=== PATIENT | female | born 1955 | race Caucasian/White ===

== ENCOUNTER 2022-09-15 10:10 | Inpatient (IN) | payer OTHER ==
[2022-09-15 10:33] VITALS: BMI 23.8
[2022-09-15 12:20] LABS: BASO % 0.4 % (0-2.0); EOS % 0.2 % (0-4.5); HEMATOCRIT 39.3 % (32.4-45.2); HEMOGLOBIN 12.5 GM/dL (10.7-15.3); LYMPH % 19.4 % (8-40); MCH 28.7 pg (25.7-33.7); MCHC 31.9 g/dl (32.0-36.0); MEAN CELL VOLUME 89.8 fl (80-96); MEAN PLT VOLUME 8.7 fl (7.5-11.1); MONO % 7.4 % (3.8-10.2); NEUT % 72.6 % (42.8-82.8); PLATELET COUNT 228 10^3/uL (134-434); RBC 4.37 M/mm3 (3.60-5.2); RDW 14.3 % (11.6-15.6); WHITE BLOOD COUNT 5.2 K/mm3 (4.0-10.0)
[2022-09-15 12:39] LABS: CHLORIDE 108 mmol/L (98-107); SODIUM 143 mmol/L (136-145)
[2022-09-15 12:41] LABS: ANION GAP 3 MMOL/L (8-16); BLOOD UREA NITROGEN 19.7 mg/dL (7-18); CALCIUM 9.2 mg/dL (8.5-10.1); CO2 31 mmol/L (21-32)
[2022-09-15 12:42] LABS: ALBUMIN 3.4 g/dl (3.4-5.0); GLUCOSE,RANDOM 119 mg/dL (74-106)
[2022-09-15 12:45] LABS: CREATININE 0.8 mg/dL (0.55-1.3); SGOT/AST 38 U/L (15-37); SGPT/ALT 35 U/L (13-61)
[2022-09-15 12:46] LABS: BILIRUBIN,TOTAL 0.5 mg/dL (0.2-1); TOT PROT 6.8 g/dl (6.4-8.2)
[2022-09-15 12:47] LABS: ALK PHOS 81 U/L (45-117)
[2022-09-15] MEDS ORDERED: ASPIRIN 81 MG CHEWABLE TABLETS PO ONE (13:05)
[2022-09-15] MEDS ORDERED: ASPIRIN 81 MG CHEWABLE TABLETS ONE (13:43)
[2022-09-15] MEDS ORDERED: CLOPIDOGREL BISULFATE 300 MG TABLET PO ONE (13:44)
[2022-09-15] MEDS ORDERED: ENOXAPARIN NA (PORCINE) 60 MG/0.6 ML DISP.SYRIN SQ SCH (13:45)
[2022-09-15 14:01] LABS: INR 1.07 (0.83-1.09); PROTHROMBIN TIME (PATIENT) 12.3 SEC (9.7-13.0)
[2022-09-15] MEDS ORDERED: ENOXAPARIN NA (PORCINE) 60 MG/0.6 ML DISP.SYRIN SQ ONE ×2 (14:30→15:24)
[2022-09-15] MEDS ORDERED: CLOPIDOGREL BISULFATE 300 MG TABLET ONE (15:24)
[2022-09-15] MEDS ORDERED: SODIUM CHLORIDE 1,000 ML IV SCH (17:15)
[2022-09-15 18:08] LABS: CHOLESTEROL 150 mg/dL (50-200); TRIGLYCERIDES 65 mg/dL (0-150)
[2022-09-15 18:09] LABS: LDL CHOLESTEROL (ONLY SJRH) 78 mg/dL (5-100)
[2022-09-15 18:10] LABS: HDL CHOLESTEROL 61 mg/dL (40-60)
[2022-09-16] MEDS: ATORVASTATIN CA 20 MG TABLET (FP) PO SCH ×2 (07:04→22:28)
[2022-09-16] MEDS: propRANOLol HCL 10 MG TABLET PO SCH ×3 (07:04→22:30)
[2022-09-16] MEDS: ENOXAPARIN NA (PORCINE) 60 MG/0.6 ML DISP.SYRIN SQ SCH ×3 (07:04→22:28)
[2022-09-16 07:05] LABS: BASO % 0.9 % (0-2.0); EOS % 0.2 % (0-4.5); HEMATOCRIT 31.9 % (32.4-45.2); HEMOGLOBIN 10.5 GM/dL (10.7-15.3); LYMPH % 45.4 % (8-40); MCH 29.7 pg (25.7-33.7); MEAN CELL VOLUME 89.8 fl (80-96); MEAN PLT VOLUME 8.6 fl (7.5-11.1); MONO % 11.8 % (3.8-10.2); NEUT % 41.7 % (42.8-82.8); PLATELET COUNT 180 10^3/uL (134-434); RBC 3.55 M/mm3 (3.60-5.2); RDW 14.2 % (11.6-15.6); WHITE BLOOD COUNT 4.5 K/mm3 (4.0-10.0)
[2022-09-16 07:25] LABS: CALCIUM 8.8 mg/dL (8.5-10.1)
[2022-09-16 07:26] LABS: MAGNESIUM 1.9 mg/dL (1.8-2.4)
[2022-09-16 07:29] LABS: BILIRUBIN,TOTAL 0.5 mg/dL (0.2-1); CREATININE 0.6 mg/dL (0.55-1.3); PHOSPHOROUS 3.8 mg/dL (2.5-4.9); TOT PROT 5.8 g/dl (6.4-8.2)
[2022-09-16] MEDS: CLOPIDOGREL BISULFATE 75 MG TABLET (FP) PO SCH (09:45)
[2022-09-16] MEDS: ASPIRIN COATED 81 MG TABLET.EC PO SCH (09:45)
[2022-09-16] MEDS ORDERED: ENOXAPARIN NA (PORCINE) 60 MG/0.6 ML DISP.SYRIN SQ ONE ×2 (09:47→22:09)
[2022-09-16] MEDS ORDERED: CLOPIDOGREL BISULFATE 75 MG TABLET (FP) ONE (09:47)
[2022-09-16] MEDS ORDERED: ASPIRIN COATED 81 MG TABLET.EC ONE (09:47)
[2022-09-16] MEDS ORDERED: propRANOLol HCL 10 MG TABLET ONE (22:09)
[2022-09-16] MEDS ORDERED: ATORVASTATIN CA 20 MG TABLET (FP) ONE (22:09)
[2022-09-17 07:56] LABS: BLOOD UREA NITROGEN 10.9 mg/dL (7-18); CALCIUM 9.3 mg/dL (8.5-10.1)
[2022-09-17 07:59] LABS: CREATININE 0.6 mg/dL (0.55-1.3)
[2022-09-17] MEDS ORDERED: ADENOSINE 6 MG/2 ML VIAL IVPUSH ONE ×3 (08:00→13:06)
[2022-09-17 08:01] LABS: BILIRUBIN,TOTAL 0.7 mg/dL (0.2-1); TOT PROT 7.3 g/dl (6.4-8.2)
[2022-09-17 08:04] LABS: ALBUMIN 3.7 g/dl (3.4-5.0)
[2022-09-17] MEDS: propRANOLol HCL 10 MG TABLET PO SCH ×3 (08:58→21:35)
[2022-09-17] MEDS ORDERED: propRANOLol HCL 10 MG TABLET ONE (08:58)
[2022-09-17 09:11] LABS: BASO % 0.3 % (0-2.0); EOS % 0.6 % (0-4.5); HEMATOCRIT 36.9 % (32.4-45.2); HEMOGLOBIN 12.2 GM/dL (10.7-15.3); MCH 29.2 pg (25.7-33.7); MCHC 33.1 g/dl (32.0-36.0); MEAN CELL VOLUME 88.4 fl (80-96); MEAN PLT VOLUME 8.5 fl (7.5-11.1); MONO % 9.4 % (3.8-10.2); NEUT % 58.7 % (42.8-82.8); PLATELET COUNT 213 10^3/uL (134-434); RBC 4.17 M/mm3 (3.60-5.2); RDW 13.9 % (11.6-15.6); WHITE BLOOD COUNT 4.1 K/mm3 (4.0-10.0)
[2022-09-17] MEDS ORDERED: CLOPIDOGREL BISULFATE 75 MG TABLET (FP) ONE (09:19)
[2022-09-17] MEDS ORDERED: ASPIRIN 81 MG CHEWABLE TABLETS ONE (09:19)
[2022-09-17] MEDS ORDERED: ENOXAPARIN NA (PORCINE) 60 MG/0.6 ML DISP.SYRIN SQ ONE (09:19)
[2022-09-17] MEDS: CLOPIDOGREL BISULFATE 75 MG TABLET (FP) PO SCH (09:20)
[2022-09-17] MEDS: ASPIRIN COATED 81 MG TABLET.EC PO SCH (09:20)
[2022-09-17] MEDS: ENOXAPARIN NA (PORCINE) 60 MG/0.6 ML DISP.SYRIN SQ SCH ×2 (09:20→21:33)
[2022-09-17] MEDS ORDERED: METOPROLOL TARTRATE 50 MG TABLET (FP) ONE (11:49)
[2022-09-17] MEDS: METOPROLOL TARTRATE 50 MG TABLET (FP) PO SCH ×2 (11:50→21:34)
[2022-09-17] MEDS ORDERED: LORazepam 2 MG/ML SDV VIAL IVPUSH ONE (13:22)
[2022-09-17] MEDS ORDERED: LORazepam 2 MG/ML SDV VIAL IVPUSH STA (13:37)
[2022-09-17] MEDS ORDERED: NITROGLYCERIN SUBLINGUAL 1/150 0.4 MG TAB SL ONE (19:49)
[2022-09-17] MEDS ORDERED: NITROGLYCERIN 25MG/D5W 250ML 25 MG/250 ML ML IVPB SCH (20:00)
[2022-09-17] MEDS: ATORVASTATIN CA 20 MG TABLET (FP) PO SCH (21:34)
[2022-09-18 09:54] LABS: BASO % 0.5 % (0-2.0); EOS % 1.1 % (0-4.5); HEMATOCRIT 32.4 % (32.4-45.2); HEMOGLOBIN 10.7 GM/dL (10.7-15.3); LYMPH % 55.2 % (8-40); MCH 29.3 pg (25.7-33.7); MCHC 33.2 g/dl (32.0-36.0); MEAN CELL VOLUME 88.4 fl (80-96); MEAN PLT VOLUME 8.7 fl (7.5-11.1); MONO % 12.3 % (3.8-10.2); NEUT % 30.9 % (42.8-82.8); PLATELET COUNT 208 10^3/uL (134-434); RBC 3.67 M/mm3 (3.60-5.2); RDW 14.1 % (11.6-15.6); WHITE BLOOD COUNT 3.3 K/mm3 (4.0-10.0)
[2022-09-18 10:16] LABS: BLOOD UREA NITROGEN 15.1 mg/dL (7-18); CALCIUM 8.3 mg/dL (8.5-10.1)
[2022-09-18 10:19] LABS: CREATININE 0.7 mg/dL (0.55-1.3)
[2022-09-18 10:21] LABS: BILIRUBIN,TOTAL 0.3 mg/dL (0.2-1); TOT PROT 5.5 g/dl (6.4-8.2)
[2022-09-18 10:38] LABS: ALBUMIN 2.7 g/dl (3.4-5.0)
[2022-09-18] MEDS: ENOXAPARIN NA (PORCINE) 60 MG/0.6 ML DISP.SYRIN SQ SCH ×2 (10:38→21:49)
[2022-09-18] MEDS: ASPIRIN COATED 81 MG TABLET.EC PO SCH (10:39)
[2022-09-18] MEDS: CLOPIDOGREL BISULFATE 75 MG TABLET (FP) PO SCH (10:39)
[2022-09-18] MEDS: METOPROLOL TARTRATE 50 MG TABLET (FP) PO SCH (10:39)
[2022-09-18] MEDS: AMINO ACIDS/PROTEIN HYDROLYS 30 ML LIQUID.PKT PO SCH (17:01)
[2022-09-18] MEDS: ATORVASTATIN CA 20 MG TABLET (FP) PO SCH (21:50)
[2022-09-19 09:13] LABS: HEMATOCRIT 31.5 % (32.4-45.2); HEMOGLOBIN 10.6 GM/dL (10.7-15.3); MCH 29.6 pg (25.7-33.7); MCHC 33.6 g/dl (32.0-36.0); MEAN CELL VOLUME 88.2 fl (80-96); MEAN PLT VOLUME 8.6 fl (7.5-11.1); PLATELET COUNT 194 10^3/uL (134-434); RBC 3.57 M/mm3 (3.60-5.2); RDW 14.1 % (11.6-15.6); WHITE BLOOD COUNT 3.2 K/mm3 (4.0-10.0)
[2022-09-19 09:41] LABS: CALCIUM 8.7 mg/dL (8.5-10.1)
[2022-09-19 09:42] LABS: ALBUMIN 2.7 g/dl (3.4-5.0); BLOOD UREA NITROGEN 12.4 mg/dL (7-18); MAGNESIUM 2.1 mg/dL (1.8-2.4)
[2022-09-19 09:45] LABS: CREATININE 0.6 mg/dL (0.55-1.3)
[2022-09-19 09:46] LABS: BILIRUBIN,TOTAL 0.4 mg/dL (0.2-1)
[2022-09-19 09:47] LABS: TOT PROT 5.4 g/dl (6.4-8.2)
[2022-09-19 09:57] LABS: ANISOCYTOSIS 1+; MACROCYTOSIS 0
[2022-09-19] MEDS ORDERED: REGADENOSON 0.4 MG/5 ML PRE-FILLED SYRINGE IVPUSH ONE ×2 (11:50→12:00)
[2022-09-19] MEDS: AMINO ACIDS/PROTEIN HYDROLYS 30 ML LIQUID.PKT PO SCH ×3 (14:36→16:53)
[2022-09-19] MEDS: ASPIRIN COATED 81 MG TABLET.EC PO SCH (14:37)
[2022-09-19] MEDS: ENOXAPARIN NA (PORCINE) 60 MG/0.6 ML DISP.SYRIN SQ SCH ×2 (14:37→22:05)
[2022-09-19] MEDS: CLOPIDOGREL BISULFATE 75 MG TABLET (FP) PO SCH (14:38)
[2022-09-19] MEDS: ATORVASTATIN CA 20 MG TABLET (FP) PO SCH (22:05)
[2022-09-20 06:41] VITALS: RESP 18
[2022-09-20] MEDS ORDERED: metoPROLOL SUCCINATE 25 MG TAB.SR.24H (FP) PO SCH (07:43)
[2022-09-20] MEDS: AMINO ACIDS/PROTEIN HYDROLYS 30 ML LIQUID.PKT PO SCH ×2 (08:57→11:08)
[2022-09-20] MEDS: CLOPIDOGREL BISULFATE 75 MG TABLET (FP) PO SCH (11:08)
[2022-09-20] MEDS: ASPIRIN COATED 81 MG TABLET.EC PO SCH (11:08)
[2022-09-20] MEDS: ENOXAPARIN NA (PORCINE) 60 MG/0.6 ML DISP.SYRIN SQ SCH (11:08)
[2022-09-20 15:28] VITALS: BP 133/52; PULSE 60; TEMP 98.7
== END 2022-09-20 17:46 | disposition home or self-care (01) | DRG 281 ==
LOC: JER 10:10 → JERBED 16:07 → J4S 09-17 20:08
PROVIDERS: ADMIT Internal Medicine; ATTEND Internal Medicine
DX: I21.4 Non-ST elevation (NSTEMI) myocardial infarction (principal); I47.1 Supraventricular tachycardia; E11.9 Type 2 diabetes mellitus without complications; I10 Essential (primary) hypertension; E78.5 Hyperlipidemia, unspecified; D64.9 Anemia, unspecified; E05.90 Thyrotoxicosis, unspecified without thyrotoxic crisis or storm; R63.4 Abnormal weight loss; R91.1 Solitary pulmonary nodule; D72.819 Decreased white blood cell count, unspecified; E87.6 Hypokalemia; Z68.23 Body mass index [BMI] 23.0-23.9, adult
CPT/HCPCS: 0241U-QW; 36415; 70450-TC; 70486-TC; 71046-TC-FY; 71275-TC; 78452-TC; 80053; 80061; 82962; 83036; 83735; 84100; 84436; 84439; 84443; 84445; 84480; 84481; 84484; 85025; 85379; 85610; 85730; 93005; 93010; 93017; 93306-TC; 97116-GP; 97161-GP; 99285-25; A9502; J2785; Q9967

== ENCOUNTER 2022-10-07 10:18 | Inpatient (IN) | payer OTHER ==
[2022-10-07] MEDS ORDERED: DEXTROSE 50%-WATER - 25 GM/50 ML VIAL IVPUSH ONE (10:29)
[2022-10-07] MEDS ORDERED: DEXTROSE 50%-WATER 25 GM/50 ML DISP.SYRIN ONE (10:30)
[2022-10-07 12:10] LABS: BASO % 0.7 % (0-2.0); EOS % 0.3 % (0-4.5); HEMATOCRIT 36.3 % (32.4-45.2); LYMPH % 24.5 % (8-40); MCH 29.8 pg (25.7-33.7); MCHC 33.1 g/dl (32.0-36.0); MEAN CELL VOLUME 90.2 fl (80-96); MEAN PLT VOLUME 8.9 fl (7.5-11.1); MONO % 8.7 % (3.8-10.2); NEUT % 65.8 % (42.8-82.8); PLATELET COUNT 174 10^3/uL (134-434); RBC 4.02 M/mm3 (3.60-5.2); RDW 14.8 % (11.6-15.6); WHITE BLOOD COUNT 2.8 K/mm3 (4.0-10.0)
[2022-10-07 13:06] LABS: CALCIUM 8.9 mg/dL (8.5-10.1)
[2022-10-07 13:07] LABS: ALBUMIN 3.5 g/dl (3.4-5.0); BLOOD UREA NITROGEN 14.2 mg/dL (7-18)
[2022-10-07 13:09] LABS: CREATININE 0.8 mg/dL (0.55-1.3)
[2022-10-07 13:11] LABS: BILIRUBIN,TOTAL 0.6 mg/dL (0.2-1); TOT PROT 6.6 g/dl (6.4-8.2)
[2022-10-07 13:29] LABS: PHOSPHOROUS 3.7 mg/dL (2.5-4.9)
[2022-10-07] MEDS ORDERED: DEXTROSE 5%-LACTATED RINGERS 1,000 ML IV SCH (15:15)
[2022-10-07] MEDS: ATORVASTATIN CA 40 MG TABLET (FP) PO SCH (21:48)
[2022-10-08] MEDS ORDERED: INSULIN SLIDING SCALE (NOVOLOG) 1 VIAL SQ SCH ×2 (07:00)
[2022-10-08 08:42] LABS: BASO % 0.6 % (0-2.0); HEMATOCRIT 33.1 % (32.4-45.2); HEMOGLOBIN 11.4 GM/dL (10.7-15.3); LYMPH % 50.6 % (8-40); MCH 30.2 pg (25.7-33.7); MCHC 34.4 g/dl (32.0-36.0); MEAN CELL VOLUME 87.8 fl (80-96); MEAN PLT VOLUME 8.4 fl (7.5-11.1); MONO % 15.7 % (3.8-10.2); NEUT % 32.1 % (42.8-82.8); PLATELET COUNT 160 10^3/uL (134-434); RBC 3.77 M/mm3 (3.60-5.2); RDW 14.3 % (11.6-15.6)
[2022-10-08 08:52] LABS: INR 1.14 (0.83-1.09); PROTHROMBIN TIME (PATIENT) 13.2 SEC (9.7-13.0)
[2022-10-08 08:55] LABS: ACTIVATED PTT 27.8 SECONDS (25.2-36.5)
[2022-10-08 09:16] LABS: MAGNESIUM 1.9 mg/dL (1.8-2.4)
[2022-10-08 09:25] LABS: N-TERMINAL BNP 267.9 pg/ml (5-125)
[2022-10-08] MEDS: CLOPIDOGREL BISULFATE 75 MG TABLET (FP) PO SCH (09:59)
[2022-10-08] MEDS: PANTOPRAZOLE 40 MG TABLET PO SCH (10:00)
[2022-10-08] MEDS: ENOXAPARIN NA (PORCINE) 30 MG/0.3 ML DISP.SYRIN SQ SCH (10:00)
[2022-10-08] MEDS: ASPIRIN 81 MG CHEWABLE TABLETS PO SCH (10:00)
[2022-10-08] MEDS ORDERED: FAMOTIDINE 20 MG TABLET PO SCH (10:00)
[2022-10-08 18:25] LABS: HIV INTERPRETATION NEGATIVE (NEGATIVE)
[2022-10-08] MEDS: SODIUM CHLORIDE 1,000 ML IV SCH (19:20)
[2022-10-08 21:46] LABS: ANISOCYTOSIS 2+; MACROCYTOSIS 0; OVALOCYTE 1+
[2022-10-08] MEDS: ATORVASTATIN CA 40 MG TABLET (FP) PO SCH (21:48)
[2022-10-08] MEDS ORDERED: risperiDONE 0.5 MG TABLET PO SCH (22:00)
[2022-10-08] MEDS: metoPROLOL SUCCINATE 25 MG TAB.SR.24H (FP) PO SCH (22:04)
[2022-10-09 08:49] LABS: BASO % 0.7 % (0-2.0); EOS % 1.8 % (0-4.5); HEMATOCRIT 35.5 % (32.4-45.2); HEMOGLOBIN 11.9 GM/dL (10.7-15.3); LYMPH % 50.1 % (8-40); MCH 29.7 pg (25.7-33.7); MCHC 33.5 g/dl (32.0-36.0); MEAN CELL VOLUME 88.7 fl (80-96); MEAN PLT VOLUME 8.8 fl (7.5-11.1); MONO % 14.4 % (3.8-10.2); PLATELET COUNT 171 10^3/uL (134-434); RDW 14.6 % (11.6-15.6); WHITE BLOOD COUNT 2.6 K/mm3 (4.0-10.0)
[2022-10-09 09:24] LABS: CALCIUM 8.8 mg/dL (8.5-10.1)
[2022-10-09 09:25] LABS: ALBUMIN 3.1 g/dl (3.4-5.0)
[2022-10-09 09:27] LABS: CREATININE 0.7 mg/dL (0.55-1.3)
[2022-10-09 09:28] LABS: TOT PROT 6.1 g/dl (6.4-8.2)
[2022-10-09 09:29] LABS: BILIRUBIN,TOTAL 0.6 mg/dL (0.2-1)
[2022-10-09] MEDS ORDERED: SERTRALINE HCL 25 MG TABLET (FP) PO SCH (10:00)
[2022-10-09] MEDS: metoPROLOL SUCCINATE 25 MG TAB.SR.24H (FP) PO SCH ×2 (10:15→21:44)
[2022-10-09] MEDS: ASPIRIN 81 MG CHEWABLE TABLETS PO SCH (10:15)
[2022-10-09] MEDS: CLOPIDOGREL BISULFATE 75 MG TABLET (FP) PO SCH (10:15)
[2022-10-09] MEDS: ENOXAPARIN NA (PORCINE) 30 MG/0.3 ML DISP.SYRIN SQ SCH (10:16)
[2022-10-09] MEDS: PANTOPRAZOLE 40 MG TABLET PO SCH (10:16)
[2022-10-09] MEDS: SODIUM CHLORIDE 1,000 ML IV SCH (10:19)
[2022-10-09] MEDS ORDERED: DEXTROSE 5%-NORMAL SALINE 1,000 ML IV SCH (13:45)
[2022-10-09] MEDS: DEXTROSE 5%-0.45% SALINE 1,000 ML IV SCH (14:44)
[2022-10-09 17:31] LABS: BASO % 1.1 % (0-2.0); EOS % 0.6 % (0-4.5); HEMATOCRIT 28.4 % (32.4-45.2); HEMOGLOBIN 9.4 GM/dL (10.7-15.3); LYMPH % 35.3 % (8-40); MCH 29.8 pg (25.7-33.7); MEAN CELL VOLUME 90.4 fl (80-96); MEAN PLT VOLUME 8.7 fl (7.5-11.1); MONO % 13.6 % (3.8-10.2); NEUT % 49.4 % (42.8-82.8); PLATELET COUNT 135 10^3/uL (134-434); RBC 3.14 M/mm3 (3.60-5.2); RDW 14.6 % (11.6-15.6); WHITE BLOOD COUNT 2.8 K/mm3 (4.0-10.0)
[2022-10-09 21:07] LABS: IRON SERUM 65 ug/dL (50-175); TOTAL IRON BINDING CAPACITY 258 ug/dL (250-450)
[2022-10-09 21:35] LABS: ANISOCYTOSIS 0; MACROCYTOSIS 1+
[2022-10-09] MEDS: ATORVASTATIN CA 40 MG TABLET (FP) PO SCH (21:44)
[2022-10-09] MEDS: OLANZapine 5 MG TABLET PO SCH (21:44)
[2022-10-09] MEDS: METHIMAZOLE 5 MG TABLET PO SCH (21:44)
[2022-10-09] MEDS ORDERED: METOPROLOL TARTRATE 5 MG/5 ML VIAL ONE (22:47)
[2022-10-09] MEDS ORDERED: ADENOSINE 6 MG/2 ML VIAL IVPUSH ONE ×2 (22:53)
[2022-10-09] MEDS ORDERED: METOPROLOL TARTRATE 5 MG/5 ML VIAL IVPUSH ONE (22:53)
[2022-10-09 23:46] LABS: HEMATOCRIT 38.5 % (32.4-45.2); HEMOGLOBIN 12.8 GM/dL (10.7-15.3); MCH 29.3 pg (25.7-33.7); MCHC 33.3 g/dl (32.0-36.0); MEAN PLT VOLUME 8.8 fl (7.5-11.1); PLATELET COUNT 183 10^3/uL (134-434); RBC 4.37 M/mm3 (3.60-5.2); RDW 14.5 % (11.6-15.6); WHITE BLOOD COUNT 4.9 K/mm3 (4.0-10.0)
[2022-10-10 03:27] LABS: ALBUMIN 3.6 g/dl (3.4-5.0); BLOOD UREA NITROGEN 9.7 mg/dL (7-18); CALCIUM 9.3 mg/dL (8.5-10.1); MAGNESIUM 1.9 mg/dL (1.8-2.4)
[2022-10-10 03:31] LABS: BILIRUBIN,TOTAL 0.6 mg/dL (0.2-1); CREATININE 0.7 mg/dL (0.55-1.3); TOT PROT 6.7 g/dl (6.4-8.2)
[2022-10-10] MEDS: METHIMAZOLE 5 MG TABLET PO SCH ×3 (07:10→21:25)
[2022-10-10 07:13] LABS: BASO % 0.7 % (0-2.0); EOS % 1.2 % (0-4.5); HEMATOCRIT 40.9 % (32.4-45.2); HEMOGLOBIN 13.7 GM/dL (10.7-15.3); LYMPH % 43.6 % (8-40); MCH 29.4 pg (25.7-33.7); MCHC 33.4 g/dl (32.0-36.0); MEAN CELL VOLUME 88.2 fl (80-96); MEAN PLT VOLUME 8.9 fl (7.5-11.1); MONO % 13.4 % (3.8-10.2); NEUT % 41.1 % (42.8-82.8); PLATELET COUNT 186 10^3/uL (134-434); RBC 4.64 M/mm3 (3.60-5.2); RDW 14.4 % (11.6-15.6); WHITE BLOOD COUNT 2.5 K/mm3 (4.0-10.0)
[2022-10-10 07:32] LABS: BLOOD UREA NITROGEN 7.6 mg/dL (7-18); CALCIUM 9.3 mg/dL (8.5-10.1)
[2022-10-10 07:35] LABS: CREATININE 0.7 mg/dL (0.55-1.3)
[2022-10-10] MEDS: KCL 10 MEQ IVPB 10 MEQ/100 ML INFUS.BAG IVPB SCH ×3 (08:18→10:45)
[2022-10-10] MEDS: ASPIRIN 81 MG CHEWABLE TABLETS PO SCH (09:16)
[2022-10-10] MEDS: CLOPIDOGREL BISULFATE 75 MG TABLET (FP) PO SCH (09:16)
[2022-10-10] MEDS: ENOXAPARIN NA (PORCINE) 30 MG/0.3 ML DISP.SYRIN SQ SCH (09:16)
[2022-10-10] MEDS: PANTOPRAZOLE 40 MG TABLET PO SCH (09:16)
[2022-10-10] MEDS: metoPROLOL SUCCINATE 25 MG TAB.SR.24H (FP) PO SCH ×2 (09:17→21:25)
[2022-10-10 12:12] LABS: MAGNESIUM 2.1 mg/dL (1.8-2.4)
[2022-10-10 12:16] LABS: PHOSPHOROUS 3.2 mg/dL (2.5-4.9)
[2022-10-10] MEDS: DEXTROSE 5%-0.45% SALINE 1,000 ML IV SCH (14:34)
[2022-10-10] MEDS: ATORVASTATIN CA 40 MG TABLET (FP) PO SCH (21:25)
[2022-10-10] MEDS: OLANZapine 5 MG TABLET PO SCH (21:25)
[2022-10-11] MEDS: METHIMAZOLE 5 MG TABLET PO SCH ×3 (06:17→20:59)
[2022-10-11 07:26] LABS: BASO % 0.2 % (0-2.0); EOS % 2.1 % (0-4.5); HEMATOCRIT 35.7 % (32.4-45.2); HEMOGLOBIN 11.8 GM/dL (10.7-15.3); LYMPH % 8.4 % (8-40); MCH 29.4 pg (25.7-33.7); MCHC 33.1 g/dl (32.0-36.0); MEAN CELL VOLUME 88.6 fl (80-96); MONO % 7.6 % (3.8-10.2); NEUT % 81.7 % (42.8-82.8); PLATELET COUNT 168 10^3/uL (134-434); RBC 4.04 M/mm3 (3.60-5.2); RDW 14.5 % (11.6-15.6); WHITE BLOOD COUNT 3.9 K/mm3 (4.0-10.0)
[2022-10-11 09:13] LABS: BLOOD UREA NITROGEN 6.1 mg/dL (7-18); CALCIUM 8.5 mg/dL (8.5-10.1); MAGNESIUM 1.9 mg/dL (1.8-2.4)
[2022-10-11 09:15] LABS: CREATININE 0.7 mg/dL (0.55-1.3); PHOSPHOROUS 2.6 mg/dL (2.5-4.9)
[2022-10-11 09:17] LABS: BILIRUBIN,TOTAL 0.3 mg/dL (0.2-1); TOT PROT 5.6 g/dl (6.4-8.2)
[2022-10-11 09:20] LABS: ALBUMIN 2.9 g/dl (3.4-5.0)
[2022-10-11] MEDS: ASPIRIN 81 MG CHEWABLE TABLETS PO SCH (10:22)
[2022-10-11] MEDS: CLOPIDOGREL BISULFATE 75 MG TABLET (FP) PO SCH (10:22)
[2022-10-11] MEDS: ENOXAPARIN NA (PORCINE) 30 MG/0.3 ML DISP.SYRIN SQ SCH (10:22)
[2022-10-11] MEDS: metoPROLOL SUCCINATE 25 MG TAB.SR.24H (FP) PO SCH (10:22)
[2022-10-11] MEDS: PANTOPRAZOLE 40 MG TABLET PO SCH (10:22)
[2022-10-11] MEDS: DEXTROSE 5%-0.45% SALINE 1,000 ML IV SCH (13:50)
[2022-10-11 17:23] LABS: BF GLUCOSE (CSF ONLY) 84 mg/dL (40-70)
[2022-10-11 17:25] LABS: CSF APPEARANCE CLEAR (CLEAR); CSF COLOR COLORLESS (COLORLESS); CSF WBC 0 mm3 (0-5)
[2022-10-11] MEDS: DRONEDARONE HCL 400 MG TAB (FP) PO SCH (20:59)
[2022-10-11] MEDS: ATORVASTATIN CA 40 MG TABLET (FP) PO SCH (20:59)
[2022-10-11] MEDS: OLANZapine 5 MG TABLET PO SCH (20:59)
[2022-10-12] MEDS: METHIMAZOLE 5 MG TABLET PO SCH ×3 (06:05→21:36)
[2022-10-12 08:32] LABS: HEMATOCRIT 32.7 % (32.4-45.2); MCH 29.4 pg (25.7-33.7); MCHC 33.5 g/dl (32.0-36.0); MEAN CELL VOLUME 87.9 fl (80-96); PLATELET COUNT 154 10^3/uL (134-434); RBC 3.72 M/mm3 (3.60-5.2); RDW 14.5 % (11.6-15.6); WHITE BLOOD COUNT 2.6 K/mm3 (4.0-10.0)
[2022-10-12 08:46] LABS: ALBUMIN 2.4 g/dl (3.4-5.0); BLOOD UREA NITROGEN 8.2 mg/dL (7-18); MAGNESIUM 1.9 mg/dL (1.8-2.4)
[2022-10-12 08:49] LABS: CREATININE 0.7 mg/dL (0.55-1.3)
[2022-10-12 08:50] LABS: BILIRUBIN,TOTAL 0.2 mg/dL (0.2-1)
[2022-10-12] MEDS: ASPIRIN 81 MG CHEWABLE TABLETS PO SCH (09:12)
[2022-10-12] MEDS: ENOXAPARIN NA (PORCINE) 30 MG/0.3 ML DISP.SYRIN SQ SCH (09:13)
[2022-10-12] MEDS: DRONEDARONE HCL 400 MG TAB (FP) PO SCH ×2 (09:13→21:36)
[2022-10-12] MEDS: CLOPIDOGREL BISULFATE 75 MG TABLET (FP) PO SCH (09:13)
[2022-10-12] MEDS: PANTOPRAZOLE 40 MG TABLET PO SCH (09:13)
[2022-10-12 10:01] LABS: ANISOCYTOSIS 1+; MACROCYTOSIS 0
[2022-10-12] MEDS: DEXTROSE 5%-0.45% SALINE 1,000 ML IV SCH (13:31)
[2022-10-12] MEDS: ATORVASTATIN CA 40 MG TABLET (FP) PO SCH (21:36)
[2022-10-12] MEDS: OLANZapine 5 MG TABLET PO SCH (21:36)
[2022-10-13] MEDS: DEXTROSE 5%-0.45% SALINE 1,000 ML IV SCH ×2 (02:47→16:30)
[2022-10-13 06:07] LABS: THYROTROPIN RECPTOR AB SERUM < 1.10 IU/L (0.00-1.75)
[2022-10-13] MEDS: METHIMAZOLE 5 MG TABLET PO SCH ×3 (06:23→21:32)
[2022-10-13 09:01] LABS: BASO % 0.5 % (0-2.0); EOS % 2.2 % (0-4.5); HEMATOCRIT 29.5 % (32.4-45.2); HEMOGLOBIN 10.1 GM/dL (10.7-15.3); LYMPH % 49.8 % (8-40); MCH 29.9 pg (25.7-33.7); MCHC 34.1 g/dl (32.0-36.0); MEAN CELL VOLUME 87.7 fl (80-96); MEAN PLT VOLUME 8.8 fl (7.5-11.1); MONO % 16.4 % (3.8-10.2); NEUT % 31.1 % (42.8-82.8); PLATELET COUNT 149 10^3/uL (134-434); RBC 3.36 M/mm3 (3.60-5.2); RDW 14.3 % (11.6-15.6)
[2022-10-13 09:25] LABS: ALBUMIN 2.5 g/dl (3.4-5.0); BLOOD UREA NITROGEN 5.8 mg/dL (7-18); CALCIUM 8.2 mg/dL (8.5-10.1)
[2022-10-13 09:28] LABS: CREATININE 0.8 mg/dL (0.55-1.3)
[2022-10-13 09:30] LABS: BILIRUBIN,TOTAL 0.4 mg/dL (0.2-1); TOT PROT 4.9 g/dl (6.4-8.2)
[2022-10-13] MEDS: ASPIRIN 81 MG CHEWABLE TABLETS PO SCH (10:39)
[2022-10-13] MEDS: DRONEDARONE HCL 400 MG TAB (FP) PO SCH ×2 (10:40→21:32)
[2022-10-13] MEDS: PANTOPRAZOLE 40 MG TABLET PO SCH (10:40)
[2022-10-13] MEDS: ENOXAPARIN NA (PORCINE) 30 MG/0.3 ML DISP.SYRIN SQ SCH (10:40)
[2022-10-13] MEDS: CLOPIDOGREL BISULFATE 75 MG TABLET (FP) PO SCH (10:40)
[2022-10-13] MEDS: ATORVASTATIN CA 40 MG TABLET (FP) PO SCH (21:32)
[2022-10-13] MEDS: OLANZapine 10 MG TABLET PO SCH (21:32)
[2022-10-14] MEDS: DEXTROSE 5%-0.45% SALINE 1,000 ML IV SCH (05:17)
[2022-10-14] MEDS: METHIMAZOLE 5 MG TABLET PO SCH ×3 (06:17→21:40)
[2022-10-14 08:36] LABS: HEMOGLOBIN 9.1 GM/dL (10.7-15.3); MCH 29.5 pg (25.7-33.7); MCHC 33.7 g/dl (32.0-36.0); MEAN CELL VOLUME 87.6 fl (80-96); PLATELET COUNT 148 10^3/uL (134-434); RBC 3.08 M/mm3 (3.60-5.2); RDW 14.4 % (11.6-15.6); WHITE BLOOD COUNT 3.1 K/mm3 (4.0-10.0)
[2022-10-14 08:55] LABS: CHLORIDE 111 mmol/L (98-107); SODIUM 139 mmol/L (136-145)
[2022-10-14 08:58] LABS: CALCIUM 7.7 mg/dL (8.5-10.1)
[2022-10-14 08:59] LABS: ANION GAP 6 MMOL/L (8-16); CO2 22 mmol/L (21-32)
[2022-10-14 09:02] LABS: CREATININE 0.8 mg/dL (0.55-1.3)
[2022-10-14 09:04] LABS: GLUCOSE,RANDOM 406 mg/dL (74-106)
[2022-10-14] MEDS: CLOPIDOGREL BISULFATE 75 MG TABLET (FP) PO SCH (10:23)
[2022-10-14] MEDS: DIVALPROEX NA *ER* EXTEND REL 250 MG TABLET.SA PO SCH (10:23)
[2022-10-14] MEDS: PANTOPRAZOLE 40 MG TABLET PO SCH (10:23)
[2022-10-14] MEDS: DRONEDARONE HCL 400 MG TAB (FP) PO SCH ×3 (10:23→21:46)
[2022-10-14] MEDS: ENOXAPARIN NA (PORCINE) 30 MG/0.3 ML DISP.SYRIN SQ SCH (10:23)
[2022-10-14] MEDS: ASPIRIN 81 MG CHEWABLE TABLETS PO SCH (10:23)
[2022-10-14 11:39] VITALS: BMI 18.6
[2022-10-14] MEDS: GABAPENTIN 100 MG CAPSULE PO SCH ×2 (13:13→21:38)
[2022-10-14] MEDS: POTASSIUM CHLORIDE TABS 20 MEQ TABLET.ER (FP) PO SCH (13:13)
[2022-10-14] MEDS ORDERED: DEXTROSE 5%-0.45% SALINE 990 ML with POTASSIUM CHLORIDE 20 MEQ IV SCH (13:41)
[2022-10-14] MEDS ORDERED: ONDANSETRON 4 MG/2 ML VIAL IVPB PRN (13:43)
[2022-10-14] MEDS: D5-1/2NS+20 MEQ KCL - 20 MEQ/1,000 ML INFUS.BAG IV SCH (13:48)
[2022-10-14] MEDS: OLANZapine 10 MG TABLET PO SCH (21:37)
[2022-10-14] MEDS: ATORVASTATIN CA 40 MG TABLET (FP) PO SCH (21:38)
[2022-10-15] MEDS: GABAPENTIN 100 MG CAPSULE PO SCH ×3 (05:12→22:17)
[2022-10-15] MEDS: METHIMAZOLE 5 MG TABLET PO SCH ×3 (05:52→22:17)
[2022-10-15] MEDS: PANTOPRAZOLE 40 MG TABLET PO SCH (09:20)
[2022-10-15] MEDS: CLOPIDOGREL BISULFATE 75 MG TABLET (FP) PO SCH (09:21)
[2022-10-15] MEDS: POTASSIUM CHLORIDE TABS 20 MEQ TABLET.ER (FP) PO SCH (09:21)
[2022-10-15] MEDS: ASPIRIN 81 MG CHEWABLE TABLETS PO SCH (09:22)
[2022-10-15] MEDS: DRONEDARONE HCL 400 MG TAB (FP) PO SCH ×2 (09:22→22:17)
[2022-10-15] MEDS: DIVALPROEX NA *ER* EXTEND REL 250 MG TABLET.SA PO SCH (09:23)
[2022-10-15 10:17] LABS: IRON SERUM 71 ug/dL (50-175)
[2022-10-15 10:18] LABS: TOTAL IRON BINDING CAPACITY 220 ug/dL (250-450)
[2022-10-15] MEDS: D5-1/2NS+20 MEQ KCL - 20 MEQ/1,000 ML INFUS.BAG IV SCH (13:58)
[2022-10-15] MEDS: ATORVASTATIN CA 40 MG TABLET (FP) PO SCH (22:16)
[2022-10-15] MEDS: OLANZapine 10 MG TABLET PO SCH (22:17)
[2022-10-16] MEDS: METHIMAZOLE 5 MG TABLET PO SCH ×3 (06:19→22:11)
[2022-10-16] MEDS: GABAPENTIN 100 MG CAPSULE PO SCH ×3 (06:19→22:10)
[2022-10-16 08:59] LABS: CALCIUM 8.4 mg/dL (8.5-10.1)
[2022-10-16 09:00] LABS: BASO % 0.5 % (0-2.0); EOS % 0.6 % (0-4.5); HEMATOCRIT 29.5 % (32.4-45.2); HEMOGLOBIN 10.1 GM/dL (10.7-15.3); LYMPH % 50.8 % (8-40); MCH 29.5 pg (25.7-33.7); MCHC 34.1 g/dl (32.0-36.0); MEAN CELL VOLUME 86.5 fl (80-96); MEAN PLT VOLUME 8.8 fl (7.5-11.1); MONO % 12.2 % (3.8-10.2); NEUT % 35.9 % (42.8-82.8); PLATELET COUNT 186 10^3/uL (134-434); RBC 3.41 M/mm3 (3.60-5.2); RDW 14.6 % (11.6-15.6); WHITE BLOOD COUNT 3.9 K/mm3 (4.0-10.0)
[2022-10-16 09:03] LABS: CREATININE 0.7 mg/dL (0.55-1.3)
[2022-10-16] MEDS: CLOPIDOGREL BISULFATE 75 MG TABLET (FP) PO SCH (09:15)
[2022-10-16] MEDS: ASPIRIN 81 MG CHEWABLE TABLETS PO SCH (09:15)
[2022-10-16] MEDS: PANTOPRAZOLE 40 MG TABLET PO SCH (09:15)
[2022-10-16] MEDS: POTASSIUM CHLORIDE TABS 20 MEQ TABLET.ER (FP) PO SCH ×2 (09:16→09:21)
[2022-10-16] MEDS: DIVALPROEX NA *ER* EXTEND REL 250 MG TABLET.SA PO SCH (09:16)
[2022-10-16] MEDS: DRONEDARONE HCL 400 MG TAB (FP) PO SCH ×2 (09:16→22:10)
[2022-10-16] MEDS: D5-1/2NS+20 MEQ KCL - 20 MEQ/1,000 ML INFUS.BAG IV SCH (14:38)
[2022-10-16 15:07] LABS: ALBUMIN SERUM 3.5 g/dL (3.8-4.8); CSF IGG INDEX 0.6 (0.0-0.7); IGG QN CSF 2.3 mg/dL (0.0-6.7); IGG/ALB RATIO CSF 0.15 (0.00-0.25)
[2022-10-16] MEDS: ATORVASTATIN CA 40 MG TABLET (FP) PO SCH (22:10)
[2022-10-16] MEDS: OLANZapine 10 MG TABLET PO SCH (22:10)
[2022-10-17] MEDS: D5-1/2NS+20 MEQ KCL - 20 MEQ/1,000 ML INFUS.BAG IV SCH (00:45)
[2022-10-17] MEDS: METHIMAZOLE 5 MG TABLET PO SCH ×3 (05:08→22:11)
[2022-10-17] MEDS: GABAPENTIN 100 MG CAPSULE PO SCH ×3 (05:08→22:10)
[2022-10-17] MEDS: CLOPIDOGREL BISULFATE 75 MG TABLET (FP) PO SCH (09:47)
[2022-10-17] MEDS: DIVALPROEX NA *ER* EXTEND REL 250 MG TABLET.SA PO SCH (09:47)
[2022-10-17] MEDS: ASPIRIN 81 MG CHEWABLE TABLETS PO SCH (09:47)
[2022-10-17] MEDS: PANTOPRAZOLE 40 MG TABLET PO SCH (09:47)
[2022-10-17] MEDS: DRONEDARONE HCL 400 MG TAB (FP) PO SCH ×2 (09:48→22:10)
[2022-10-17 10:25] LABS: CALCIUM 8.4 mg/dL (8.5-10.1)
[2022-10-17 10:26] LABS: BLOOD UREA NITROGEN 5.7 mg/dL (7-18)
[2022-10-17 10:29] LABS: CREATININE 0.8 mg/dL (0.55-1.3)
[2022-10-17 10:30] LABS: PHOSPHOROUS 3.6 mg/dL (2.5-4.9)
[2022-10-17] MEDS: POTASSIUM CHLORIDE TABS 20 MEQ TABLET.ER (FP) PO SCH (11:09)
[2022-10-17] MEDS ORDERED: POTASSIUM CHLORIDE ORAL LIQUID 20 MEQ/15 ML PO ONE (11:09)
[2022-10-17] MEDS: OLANZapine 10 MG TABLET PO SCH (22:10)
[2022-10-17] MEDS: ATORVASTATIN CA 40 MG TABLET (FP) PO SCH (22:10)
[2022-10-18] MEDS: METHIMAZOLE 5 MG TABLET PO SCH ×3 (05:35→22:26)
[2022-10-18] MEDS: GABAPENTIN 100 MG CAPSULE PO SCH ×3 (05:35→22:19)
[2022-10-18 09:47] LABS: HEMATOCRIT 27.5 % (32.4-45.2); HEMOGLOBIN 9.9 GM/dL (10.7-15.3); MCH 31.3 pg (25.7-33.7); MCHC 35.8 g/dl (32.0-36.0); MEAN CELL VOLUME 87.4 fl (80-96); MEAN PLT VOLUME 8.5 fl (7.5-11.1); PLATELET COUNT 198 10^3/uL (134-434); RBC 3.15 M/mm3 (3.60-5.2); RDW 13.9 % (11.6-15.6)
[2022-10-18 10:02] LABS: CALCIUM 8.4 mg/dL (8.5-10.1)
[2022-10-18 10:03] LABS: BLOOD UREA NITROGEN 7.5 mg/dL (7-18)
[2022-10-18 10:06] LABS: CREATININE 0.8 mg/dL (0.55-1.3)
[2022-10-18] MEDS: POTASSIUM CHLORIDE TABS 20 MEQ TABLET.ER (FP) PO SCH (11:02)
[2022-10-18] MEDS: ASPIRIN 81 MG CHEWABLE TABLETS PO SCH (11:02)
[2022-10-18] MEDS: CLOPIDOGREL BISULFATE 75 MG TABLET (FP) PO SCH (11:02)
[2022-10-18] MEDS: PANTOPRAZOLE 40 MG TABLET PO SCH (11:02)
[2022-10-18] MEDS: DRONEDARONE HCL 400 MG TAB (FP) PO SCH ×2 (11:04→22:19)
[2022-10-18] MEDS ORDERED: SENNOSIDES 8.6MG TABLET (FP) PO PRN (11:37)
[2022-10-18] MEDS: POLYETHYLENE GLYCOL (HEALTHYLAX) 3350 17 GM PACKET PO PRN (12:03)
[2022-10-18] MEDS: DIVALPROEX NA *ER* EXTEND REL 250 MG TABLET.SA PO SCH (12:03)
[2022-10-18] MEDS ORDERED: PIPERACILLIN/TAZOBACTAM 3.375 GM VIAL IVPB ONE (14:32)
[2022-10-18] MEDS: ATORVASTATIN CA 40 MG TABLET (FP) PO SCH (22:17)
[2022-10-18] MEDS: OLANZapine 10 MG TABLET PO SCH (22:26)
[2022-10-19] MEDS: GABAPENTIN 100 MG CAPSULE PO SCH ×3 (05:54→21:55)
[2022-10-19] MEDS: METHIMAZOLE 5 MG TABLET PO SCH ×3 (05:54→21:54)
[2022-10-19] MEDS: ASPIRIN 81 MG CHEWABLE TABLETS PO SCH (11:18)
[2022-10-19] MEDS: CLOPIDOGREL BISULFATE 75 MG TABLET (FP) PO SCH (11:19)
[2022-10-19] MEDS: PANTOPRAZOLE 40 MG TABLET PO SCH (11:19)
[2022-10-19] MEDS: POTASSIUM CHLORIDE TABS 20 MEQ TABLET.ER (FP) PO SCH (11:20)
[2022-10-19] MEDS: DRONEDARONE HCL 400 MG TAB (FP) PO SCH ×2 (12:31→21:54)
[2022-10-19] MEDS: DIVALPROEX NA *ER* EXTEND REL 250 MG TABLET.SA PO SCH (12:31)
[2022-10-19] MEDS: POLYETHYLENE GLYCOL (HEALTHYLAX) 3350 17 GM PACKET PO PRN (14:09)
[2022-10-19] MEDS: OLANZapine 10 MG TABLET PO SCH (21:55)
[2022-10-19] MEDS: ATORVASTATIN CA 40 MG TABLET (FP) PO SCH (21:55)
[2022-10-20] MEDS: GABAPENTIN 100 MG CAPSULE PO SCH ×3 (05:52→22:27)
[2022-10-20] MEDS: METHIMAZOLE 5 MG TABLET PO SCH ×3 (05:53→22:27)
[2022-10-20 08:42] LABS: HEMATOCRIT 29.7 % (32.4-45.2); MCH 29.6 pg (25.7-33.7); MCHC 33.6 g/dl (32.0-36.0); MEAN PLT VOLUME 8.1 fl (7.5-11.1); PLATELET COUNT 248 10^3/uL (134-434); RBC 3.38 M/mm3 (3.60-5.2); RDW 14.5 % (11.6-15.6); WHITE BLOOD COUNT 3.5 K/mm3 (4.0-10.0)
[2022-10-20 09:03] LABS: BLOOD UREA NITROGEN 17.1 mg/dL (7-18); CALCIUM 8.5 mg/dL (8.5-10.1)
[2022-10-20 09:07] LABS: CREATININE 0.9 mg/dL (0.55-1.3)
[2022-10-20] MEDS: POTASSIUM CHLORIDE TABS 20 MEQ TABLET.ER (FP) PO SCH (10:13)
[2022-10-20] MEDS: ASPIRIN 81 MG CHEWABLE TABLETS PO SCH (10:13)
[2022-10-20] MEDS: PANTOPRAZOLE 40 MG TABLET PO SCH (10:13)
[2022-10-20] MEDS: CLOPIDOGREL BISULFATE 75 MG TABLET (FP) PO SCH (10:13)
[2022-10-20] MEDS: DIVALPROEX NA *ER* EXTEND REL 250 MG TABLET.SA PO SCH (10:14)
[2022-10-20] MEDS: DRONEDARONE HCL 400 MG TAB (FP) PO SCH ×2 (10:14→22:29)
[2022-10-20] MEDS: ATORVASTATIN CA 40 MG TABLET (FP) PO SCH (22:27)
[2022-10-20] MEDS: OLANZapine 10 MG TABLET PO SCH (22:27)
[2022-10-21] MEDS: GABAPENTIN 100 MG CAPSULE PO SCH ×3 (05:30→21:43)
[2022-10-21] MEDS: METHIMAZOLE 5 MG TABLET PO SCH ×3 (05:30→21:43)
[2022-10-21] MEDS: DIVALPROEX NA *ER* EXTEND REL 250 MG TABLET.SA PO SCH (09:36)
[2022-10-21] MEDS: ASPIRIN 81 MG CHEWABLE TABLETS PO SCH (09:36)
[2022-10-21] MEDS: POTASSIUM CHLORIDE TABS 20 MEQ TABLET.ER (FP) PO SCH (09:37)
[2022-10-21] MEDS: DRONEDARONE HCL 400 MG TAB (FP) PO SCH ×2 (09:37→21:43)
[2022-10-21] MEDS: PANTOPRAZOLE 40 MG TABLET PO SCH (09:37)
[2022-10-21] MEDS: CLOPIDOGREL BISULFATE 75 MG TABLET (FP) PO SCH (09:37)
[2022-10-21 18:17] VITALS: RESP 18
[2022-10-21] MEDS: OLANZapine 10 MG TABLET PO SCH (21:42)
[2022-10-21] MEDS: ATORVASTATIN CA 40 MG TABLET (FP) PO SCH (21:43)
[2022-10-22] MEDS: GABAPENTIN 100 MG CAPSULE PO SCH ×3 (05:41→21:15)
[2022-10-22] MEDS: METHIMAZOLE 5 MG TABLET PO SCH ×3 (05:42→21:16)
[2022-10-22] MEDS: ASPIRIN 81 MG CHEWABLE TABLETS PO SCH (09:37)
[2022-10-22] MEDS: PANTOPRAZOLE 40 MG TABLET PO SCH (09:37)
[2022-10-22] MEDS: CLOPIDOGREL BISULFATE 75 MG TABLET (FP) PO SCH (09:37)
[2022-10-22] MEDS: DRONEDARONE HCL 400 MG TAB (FP) PO SCH ×2 (09:37→21:16)
[2022-10-22] MEDS: POTASSIUM CHLORIDE TABS 20 MEQ TABLET.ER (FP) PO SCH (09:38)
[2022-10-22] MEDS: DIVALPROEX NA *ER* EXTEND REL 250 MG TABLET.SA PO SCH (09:38)
[2022-10-22] MEDS: OLANZapine 10 MG TABLET PO SCH (21:15)
[2022-10-22] MEDS: ATORVASTATIN CA 40 MG TABLET (FP) PO SCH (21:15)
[2022-10-23] MEDS: GABAPENTIN 100 MG CAPSULE PO SCH ×2 (05:42→13:19)
[2022-10-23] MEDS: METHIMAZOLE 5 MG TABLET PO SCH ×2 (05:43→13:20)
[2022-10-23] MEDS: PANTOPRAZOLE 40 MG TABLET PO SCH (11:03)
[2022-10-23] MEDS: ASPIRIN 81 MG CHEWABLE TABLETS PO SCH (11:03)
[2022-10-23] MEDS: POLYETHYLENE GLYCOL (HEALTHYLAX) 3350 17 GM PACKET PO PRN (11:03)
[2022-10-23] MEDS: CLOPIDOGREL BISULFATE 75 MG TABLET (FP) PO SCH (11:03)
[2022-10-23] MEDS: DRONEDARONE HCL 400 MG TAB (FP) PO SCH (11:04)
[2022-10-23] MEDS: DIVALPROEX NA *ER* EXTEND REL 250 MG TABLET.SA PO SCH (11:05)
[2022-10-23] MEDS: BISACODYL 5 MG TABLET.DR (FP) PO ONE ×2 (14:32→16:05)
[2022-10-23 15:04] VITALS: BP 110/56; PULSE 70; TEMP 98.6
== END 2022-10-23 16:53 | disposition home or self-care (01) | DRG 643 ==
LOC: JER 10:18 → JERBED 14:13 → J4W 19:35 → J5S 10-12 20:29
PROVIDERS: ADMIT Internal Medicine; ATTEND Internal Medicine
DX: E05.90 Thyrotoxicosis, unspecified without thyrotoxic crisis or storm (principal); E43 Unspecified severe protein-calorie malnutrition; I21.A1 Myocardial infarction type 2; I47.1 Supraventricular tachycardia; R64 Cachexia; Z68.1 Body mass index [BMI] 19.9 or less, adult; F32.3 Major depressive disorder, single episode, severe with psychotic features; E11.649 Type 2 diabetes mellitus with hypoglycemia without coma; R00.2 Palpitations; R55 Syncope and collapse; I10 Essential (primary) hypertension; R63.0 Anorexia; R00.1 Bradycardia, unspecified; F29 Unspecified psychosis not due to a substance or known physiological condition; F22 Delusional disorders; R91.8 Other nonspecific abnormal finding of lung field; E87.6 Hypokalemia; G43.909 Migraine, unspecified, not intractable, without status migrainosus; E78.5 Hyperlipidemia, unspecified; G25.81 Restless legs syndrome
CPT/HCPCS: 0241U-QW; 36415; 70553-TC; 71045-TC-FY; 74018-TC-FY; 74177-TC; 76536-TC; 80048; 80053; 80061; 82525; 82533; 82550; 82607; 82746; 82784; 82787; 82945; 82962; 83520; 83540; 83550; 83605; 83735; 83880; 83916; 84100; 84157; 84439; 84443; 84445; 84480; 84481; 84484; 84630; 85025; 85027; 85045; 85610; 85651; 85730; 86038; 86140; 86225; 86235; 86376; 86480; 86618; 86780; 86800; 86850; 86900; 86901; 87070; 87205; 87389; 93005; 93010; 93306-TC; 99285-25; A9579; C9803-CS; Q9967; U0003; U0005

== ENCOUNTER 2023-07-12 09:51 | Observation (INO) | payer OTHER ==
[2023-07-12 09:57] VITALS: BMI 24.7
[2023-07-12 11:15] LABS: BASO % 0.1 % (0-2.0); EOS % 0.1 % (0-4.5); HEMATOCRIT 35.1 % (32.4-45.2); HEMOGLOBIN 11.5 GM/dL (10.7-15.3); LYMPH % 8.7 % (8-40); MCH 29.6 pg (25.7-33.7); MCHC 32.9 g/dl (32.0-36.0); MEAN PLT VOLUME 7.6 fl (7.5-11.1); MONO % 10.4 % (3.8-10.2); NEUT % 80.7 % (42.8-82.8); PLATELET COUNT 191 10^3/uL (134-434); RBC 3.89 M/mm3 (3.60-5.2); RDW 14.1 % (11.6-15.6); WHITE BLOOD COUNT 7.3 K/mm3 (4.0-10.0)
[2023-07-12 11:17] LABS: INR 1.03 (0.83-1.09); PROTHROMBIN TIME (PATIENT) 11.9 SEC (9.7-13.0)
[2023-07-12 11:20] LABS: ACTIVATED PTT 26.9 SECONDS (25.2-36.5)
[2023-07-12 12:12] LABS: POTASSIUM 4.4 mmol/L (3.5-5.1)
[2023-07-12 12:15] LABS: ALBUMIN 3.7 g/dl (3.4-5.0); BLOOD UREA NITROGEN 17.1 mg/dL (7-18); CALCIUM 8.9 mg/dL (8.5-10.1)
[2023-07-12 12:18] LABS: CREATININE 1.1 mg/dL (0.55-1.3)
[2023-07-12 12:20] LABS: BILIRUBIN,TOTAL 0.4 mg/dL (0.2-1); TOT PROT 7.2 g/dl (6.4-8.2)
[2023-07-12] MEDS ORDERED: METHIMAZOLE 5 MG TABLET PO SCH (14:00)
[2023-07-12 17:24] LABS: URINE APPEARANCE CLEAR; URINE BILIRUBIN NEGATIVE (NEGATIVE); URINE COLOR YELLOW; URINE GLUCOSE (UA) NEGATIVE (NEGATIVE); URINE KETONE NEGATIVE (NEGATIVE); URINE LEUK ESTERASE NEGATIVE (NEGATIVE); URINE NITRITE NEGATIVE (NEGATIVE); URINE PROTEIN NEGATIVE (NEGATIVE); URINE UROBILINOGEN 0.2 mg/dL (0.2-1.0)
[2023-07-12] MEDS: ACETAMINOPHEN 1000 MG/100 ML BAG IVPB PRN (20:27)
[2023-07-12] MEDS ORDERED: OLANZapine 10 MG TABLET PO SCH (22:00)
[2023-07-12] MEDS ORDERED: OLANZapine 5 MG TABLET PO SCH (22:00)
[2023-07-12] MEDS: METHIMAZOLE 5 MG TABLET PO SCH (22:30)
[2023-07-12] MEDS: MELATONIN 1 MG TABLET PO SCH (22:30)
[2023-07-12] MEDS: ATORVASTATIN CA 40 MG TABLET (FP) PO SCH (22:30)
[2023-07-12] MEDS: INSULIN SLIDING SCALE (NOVOLOG) 1 VIAL SQ SCH (22:35)
[2023-07-13] MEDS: INSULIN SLIDING SCALE (NOVOLOG) 1 VIAL SQ SCH ×4 (06:31→23:18)
[2023-07-13 09:13] LABS: BASO % 0.3 % (0-2.0); HEMATOCRIT 34.9 % (32.4-45.2); HEMOGLOBIN 11.5 GM/dL (10.7-15.3); LYMPH % 22.6 % (8-40); MCH 29.9 pg (25.7-33.7); MCHC 32.9 g/dl (32.0-36.0); MEAN CELL VOLUME 90.8 fl (80-96); MEAN PLT VOLUME 8.5 fl (7.5-11.1); MONO % 14.9 % (3.8-10.2); NEUT % 61.2 % (42.8-82.8); PLATELET COUNT 171 10^3/uL (134-434); RBC 3.84 M/mm3 (3.60-5.2); RDW 14.2 % (11.6-15.6); WHITE BLOOD COUNT 5.2 K/mm3 (4.0-10.0)
[2023-07-13 09:31] LABS: POTASSIUM 3.9 mmol/L (3.5-5.1)
[2023-07-13 09:46] LABS: BILIRUBIN,TOTAL 0.5 mg/dL (0.2-1); TOT PROT 6.3 g/dl (6.4-8.2)
[2023-07-13] MEDS: ENOXAPARIN NA (PORCINE) 40 MG/0.4 ML DISP.SYRIN SQ SCH (09:47)
[2023-07-13] MEDS: ASPIRIN COATED 81 MG TABLET.EC PO SCH (09:47)
[2023-07-13] MEDS: METHIMAZOLE 5 MG TABLET PO SCH ×2 (09:48→23:11)
[2023-07-13 09:49] LABS: ALBUMIN 3.2 g/dl (3.4-5.0); BLOOD UREA NITROGEN 14.1 mg/dL (7-18); CALCIUM 8.7 mg/dL (8.5-10.1); MAGNESIUM 2.3 mg/dL (1.8-2.4)
[2023-07-13 09:53] LABS: CREATININE 0.9 mg/dL (0.55-1.3)
[2023-07-13] MEDS ORDERED: DIVALPROEX NA *ER* EXTEND REL 250 MG TABLET.SA PO SCH (10:00)
[2023-07-13] MEDS: ACETAMINOPHEN 1000 MG/100 ML BAG IVPB PRN (16:46)
[2023-07-13] MEDS ORDERED: OLANZapine 5 MG TABLET PO SCH ×2 (22:00)
[2023-07-13] MEDS: MELATONIN 1 MG TABLET PO SCH (23:12)
[2023-07-13] MEDS: ATORVASTATIN CA 40 MG TABLET (FP) PO SCH (23:13)
[2023-07-14] MEDS: INSULIN SLIDING SCALE (NOVOLOG) 1 VIAL SQ SCH ×4 (06:10→21:41)
[2023-07-14 07:33] LABS: BASO % 0.5 % (0-2.0); EOS % 1.6 % (0-4.5); HEMATOCRIT 33.8 % (32.4-45.2); HEMOGLOBIN 11.5 GM/dL (10.7-15.3); LYMPH % 26.5 % (8-40); MCH 30.5 pg (25.7-33.7); MEAN CELL VOLUME 89.7 fl (80-96); MEAN PLT VOLUME 8.3 fl (7.5-11.1); MONO % 14.9 % (3.8-10.2); NEUT % 56.5 % (42.8-82.8); PLATELET COUNT 188 10^3/uL (134-434); RBC 3.77 M/mm3 (3.60-5.2); RDW 14.1 % (11.6-15.6); WHITE BLOOD COUNT 5.1 K/mm3 (4.0-10.0)
[2023-07-14 07:51] LABS: POTASSIUM 3.8 mmol/L (3.5-5.1)
[2023-07-14 07:53] LABS: CALCIUM 8.4 mg/dL (8.5-10.1)
[2023-07-14 07:54] LABS: BLOOD UREA NITROGEN 17.5 mg/dL (7-18); MAGNESIUM 2.3 mg/dL (1.8-2.4)
[2023-07-14 07:57] LABS: CREATININE 0.9 mg/dL (0.55-1.3); PHOSPHOROUS 3.8 mg/dL (2.5-4.9)
[2023-07-14 07:58] LABS: BILIRUBIN,TOTAL 0.4 mg/dL (0.2-1); TOT PROT 6.4 g/dl (6.4-8.2)
[2023-07-14] MEDS: ENOXAPARIN NA (PORCINE) 40 MG/0.4 ML DISP.SYRIN SQ SCH (10:44)
[2023-07-14] MEDS: ASPIRIN COATED 81 MG TABLET.EC PO SCH (10:44)
[2023-07-14] MEDS: DIVALPROEX SODIUM 125 MG TABLET E.C. PO SCH (10:44)
[2023-07-14] MEDS: METHIMAZOLE 5 MG TABLET PO SCH ×2 (10:45→21:39)
[2023-07-14] MEDS ORDERED: INSULIN SLIDING SCALE (NOVOLOG) 1 VIAL SQ ONE (19:40)
[2023-07-14] MEDS: ATORVASTATIN CA 40 MG TABLET (FP) PO SCH (21:38)
[2023-07-14] MEDS: MELATONIN 1 MG TABLET PO SCH (21:38)
[2023-07-14] MEDS ORDERED: OLANZapine 2.5 MG TABLET PO SCH (22:00)
[2023-07-15 02:32] VITALS: RESP 18
[2023-07-15] MEDS: INSULIN SLIDING SCALE (NOVOLOG) 1 VIAL SQ SCH ×2 (06:35→12:15)
[2023-07-15] MEDS: ENOXAPARIN NA (PORCINE) 40 MG/0.4 ML DISP.SYRIN SQ SCH (09:24)
[2023-07-15] MEDS: DIVALPROEX SODIUM 125 MG TABLET E.C. PO SCH (09:24)
[2023-07-15] MEDS: METHIMAZOLE 5 MG TABLET PO SCH (09:24)
[2023-07-15] MEDS: ASPIRIN COATED 81 MG TABLET.EC PO SCH (09:24)
[2023-07-15 09:34] VITALS: PULSE 64
[2023-07-15 15:49] VITALS: BP 102/64; TEMP 98.5
[2023-07-15] MEDS ORDERED: OLANZapine 2.5 MG TABLET PO SCH (22:00)
== END 2023-07-15 15:00 | disposition home or self-care (01) ==
LOC: JER 09:51 → JERBED 12:38 → J4S 18:49
PROVIDERS: ADMIT Internal Medicine; ATTEND Internal Medicine
PROC: 3E033NZ Introduction of Analgesics, Hypnotics, Sedatives into Peripheral Vein, Percutaneous Approach (ICD-10-PCS; principal; 2023-07-12)
PROC: 3E023GC Introduction of Other Therapeutic Substance into Muscle, Percutaneous Approach (ICD-10-PCS; 2023-07-12)
DX: R41.82 Altered mental status, unspecified (principal); R55 Syncope and collapse; R26.2 Difficulty in walking, not elsewhere classified; I10 Essential (primary) hypertension; E78.5 Hyperlipidemia, unspecified; E11.9 Type 2 diabetes mellitus without complications; E05.90 Thyrotoxicosis, unspecified without thyrotoxic crisis or storm; I47.10 Supraventricular tachycardia, unspecified; I21.4 Non-ST elevation (NSTEMI) myocardial infarction; F32.3 Major depressive disorder, single episode, severe with psychotic features; W18.39XA Other fall on same level, initial encounter; Y93.89 Activity, other specified; Y92.009 Unspecified place in unspecified non-institutional (private) residence as the place of occurrence of the external cause
CPT/HCPCS: 0241U-QW; 36415; 70450-TC; 70551-TC; 71045-TC-FY; 80053; 80061; 81003; 82550; 82553; 82962; 83036; 83605; 83735; 84100; 84443; 84484; 85025; 85610; 85730; 86850; 86900; 86901; 87040; 87086; 93005; 93010; 96372; 96374; 97116-GP; 97161-GP; 99291; G0378

== ENCOUNTER 2023-12-22 19:28 | Emergency (ER) | payer OTHER ==
[2023-12-22 19:33] VITALS: RESP 18; BMI 25.7
[2023-12-22 21:30] LABS: BASO % 0.5 % (0-2.0); EOS % 0.3 % (0-4.5); HEMATOCRIT 38.6 % (32.4-45.2); HEMOGLOBIN 12.9 GM/dL (10.7-15.3); LYMPH % 36.2 % (8-40); MCH 29.6 pg (25.7-33.7); MCHC 33.3 g/dl (32.0-36.0); MEAN CELL VOLUME 88.8 fl (80-96); MEAN PLT VOLUME 7.9 fl (7.5-11.1); PLATELET COUNT 221 10^3/uL (134-434); RBC 4.35 M/mm3 (3.60-5.2); WHITE BLOOD COUNT 6.3 K/mm3 (4.0-10.0)
[2023-12-22 21:54] LABS: POTASSIUM 4.3 mmol/L (3.5-5.1)
[2023-12-22 21:56] LABS: ALBUMIN 3.7 g/dl (3.4-5.0); CALCIUM 9.4 mg/dL (8.5-10.1)
[2023-12-22 21:57] LABS: BLOOD UREA NITROGEN 12.1 mg/dL (7-18)
[2023-12-22 22:00] LABS: CREATININE 0.8 mg/dL (0.55-1.3)
[2023-12-22 22:01] LABS: BILIRUBIN,TOTAL 0.3 mg/dL (0.2-1); TOT PROT 7.4 g/dl (6.4-8.2)
[2023-12-22 22:53] VITALS: BP 149/74; PULSE 60; TEMP 98.8
== END 2023-12-22 22:52 | disposition home or self-care (01) ==
LOC: JER 19:28
DX: R06.02 Shortness of breath (principal); I10 Essential (primary) hypertension
CPT/HCPCS: 36415; 71046-TC-FY; 80053; 84443; 84484; 85025; 93005; 93010; 99285-25